=== PATIENT | male | born 1985 | race Caucasian/White ===

== ENCOUNTER 2021-08-04 08:08 | Day surgery (SDC) | payer BC ==
[2021-07-31 12:06] LABS: BASOPHILS % (AUTO) 0.6 % (0-1); EOSINOPHILS # (AUTO) 0.1 X10'3 (0-0.9); EOSINOPHILS % (AUTO) 1.5 % (0-6); LYMPHOCYTES % (AUTO) 16.3 % (21-51); MEAN CORPUSCULAR HEMOGLOBIN 31.7 PG (27.0-31.0); MEAN CORPUSCULAR HGB CONC 34.1 g/dL (33.0-36.5); MEAN PLATELET VOLUME 7.7 FL (7.4-10.4); MONOCYTES # (AUTO) 0.2 X10'3 (0-0.9); MONOCYTES % (AUTO) 3.4 % (2-12); NEUTROPHILS # (AUTO) 4.9 X10'3 (1.8-7.7); NEUTROPHILS % (AUTO) 78.2 % (42-75); PRE OP HEMATOCRIT 38.9 % (42.0-52.0); PRE OP HEMOGLOBIN 13.3 g/dL (14.0-17.9); PRE OP PLATELET COUNT 192 X10'3 (140-440); RED BLOOD COUNT 4.18 X10'6 (4.70-6.10); RED CELL DISTRIBUTION WIDTH 12.4 % (11.5-14.5)
[2021-07-31 12:23] LABS: ALKALINE PHOSPHATASE 79 IU/L (46-116); BLOOD UREA NITROGEN 16 MG/DL (7-18); BUN/CREATININE RATIO 18.4 (5.4-32.0); CHLORIDE 105 MMOL/L (99-107); CREATININE 0.87 MG/DL (0.60-1.10); PRE OP ALT 23 U/L (30-65); PRE OP ANION GAP 7 (8-16); PRE OP AST 16 U/L (10-37); PRE OP BILIRUB, TOTAL 0.3 MG/DL (0.0-1.0); PRE OP GLUCOSE 149 MG/DL (70-104); PRE OP POTASSIUM 4.4 MMOL/L (3.4-5.1); PRE OP SODIUM 143 MMOL/L (135-145); TOTAL CARBON DIOXIDE 31.1 MMOL/L (24-32); eGFR > 90 ML/MIN
[~2021-08-04] VITALS: Ht 188 cm; Wt 65.8 kg
[~2021-08-04 08:08] MED LIST: ACET-1025 PO; ASPI-144 PO; BUPIVAcaine/PF 2.5mg/ml (0.25%) 10ml vial ONE; BUPR1FIL3 SL; CARB200T40 PO; DOCUMENT DATE & TIME OF BETA-BLOCKER PO ONE; DOXE3TAB4 PO; IBUP-24 PO; LIDOcaine 1% 30ml preserv. free vial ONE; PROP80TA4 PO; cefazolin/dext.iso 2gm/100ml IV ONE; famotidine 20mg tablet PO ONE; ringers solution, lacted 1,000 ML IV SCH
[2021-08-04] MEDS ORDERED: BUPIVAcaine/PF 2.5mg/ml (0.25%) 10ml vial ONE (08:34)
[2021-08-04 08:45] VITALS: BP 139/78
[2021-08-04] MEDS ORDERED: MIDAZolam 1 MG/ML 5ML VIAL ONE (09:43)
[2021-08-04] MEDS ORDERED: fentaNYL/PF 50MCG/1 ML 2ML syringe ONE (09:43)
[2021-08-04] MEDS ORDERED: ketorolac trometh. 30mg/ml inj. ONE (09:45)
[2021-08-04 10:39] VITALS: BP 127/91
--- NOTE | 2021-08-04 10:39 | NUR ---
Received from OR via [facility] IN STABLE CONDITION , accompanied by Anesthesiologist and SOFTWARE QUALITY ASSURANCE ENGINEER report given by SOFTWARE QUALITY ASSURANCE ENGINEER AND Anesthesiolgist. Addendum: 08/04/21 at 1113 by Eden Chou RN Amended: Links added.
[2021-08-04 10:50] VITALS: BP 143/99
[2021-08-04 11:00] VITALS: BP 147/98
[2021-08-04 11:10] VITALS: BP 133/87
--- NOTE | 2021-08-04 11:29 | NUR ---
PATIENT DISCHARGED HOME FROM PACU IN STABLE CONDITION AFTER WRITTEN AND VERBAL DISCHARGE INSTRUCTIONS GIVEN. PATIENT GAVE VERBAL UNDERSTANDING OF INSTRUCTIONS GIVEN. PATIENT LEFT FACILITY VIA WHEELCHAIR WITH VOLUNTEER. Addendum: 08/04/21 at 1138 by Eden Chou RN Amended: Links added.
== END 2021-08-04 11:29 | disposition home or self-care (01) ==
LOC: PAS 08:08
PROVIDERS: ATTEND Orthopaedic Surgery Hand Surgery
DX: G56.01 Carpal tunnel syndrome, right upper limb (principal); G40.909 Epilepsy, unspecified, not intractable, without status epilepticus; I10 Essential (primary) hypertension; G89.29 Other chronic pain; F17.210 Nicotine dependence, cigarettes, uncomplicated; Z20.822 Contact with and (suspected) exposure to COVID-19; Z79.899 Other long term (current) drug therapy; Z72.89 Other problems related to lifestyle; Z82.49 Family history of ischemic heart disease and other diseases of the circulatory system; Z80.8 Family history of malignant neoplasm of other organs or systems
CPT/HCPCS: 29848; 36415; 80053; 85025; 93005; J1885; J2001; J2250; J3010; J3490; U0003; U0005; Z7506; Z7512; A4215; A7000; J7120